=== PATIENT | male | born 1945 | race Caucasian/White ===

== ENCOUNTER → 2019-07-08 | Outpatient (CLI) | payer OTHER | LOC: SJCVC 14:55 | DX: I25.10 Atherosclerotic heart disease of native coronary artery without angina pectoris (principal); I10 Essential (primary) hypertension; E78.00 Pure hypercholesterolemia, unspecified; E11.9 Type 2 diabetes mellitus without complications; K21.9 Gastro-esophageal reflux disease without esophagitis; Z79.82 Long term (current) use of aspirin; Z79.84 Long term (current) use of oral hypoglycemic drugs; Z79.899 Other long term (current) drug therapy ==

== ENCOUNTER → 2019-07-21 | Outpatient (CLI) | payer OTHER ==
--- NOTE | 2019-07-21 10:04 | 2DMMODE ---
[facility] [place] [address] 2 D/M-MODE ECHOCARDIOGRAM Name: ZULAY JENSEN Room #: REG [facility]#: [id number] Admission: 07/21/19 Attend Phys: Kolby Bridges MD Discharge: Date of : 49 Report #: [id number] THIS REPORT FOR: //name// APPROVED REPORT Study performed: 07/21/2019 08:46:45 EXAM: Comprehensive 2D, Doppler, and color-flow Echocardiogram Patient Location: Out-Patient Room #: Echo lab 2 Status: routine BSA: 2.02 HR: 57 bpm BP: 144/80 mmHg Rhythm: Bradycardia Other Information Study Quality: Good Indications Diabetes Dyspnea Hypertension/HDD 2D Dimensions RVDd: 37.47 mm IVSd: 10.02 (7-11mm) LVOT Diam: 20.67 (18-24mm) LVDd: 49.34 mm PWd: 11.34 (7-11mm) Ascending Ao: 28.66 (22-36mm) LVDs: 31.13 (25-40mm) Aortic Root: 30.54 mm IVC: 23.00 mm Volumes Left Atrial Volume (Systole) Single Plane 4CH: 93.36 mL Single Plane 2CH: 53.46 mL LA ESV Index: 41.00 mL/m2 Aortic Valve AoV Peak Collin.: 1.57 m/s AO Peak Gr.: 9.86 mmHg LVOT Max P.99 mmHg LVOT Max V: 1.12 m/s VICKY Vmax: 2.39 cm2 Mitral Valve E/A Ratio: 1.4 [facility] [place] [address] 2 D/M-MODE ECHOCARDIOGRAM Name: ZULAY JENSEN Room #: REG [facility]#: [id number] Admission: 07/21/19 Attend Phys: Kolby Bridges MD Discharge: Date of : 49 Report #: [id number] MV Decel. Time: 137.82 ms MV E Max Collin.: 0.96 m/s MV A Collin.: 0.69 m/s MV PHT: 39.97 ms IVRT: 73.82 ms Pulmonary Valve PV Peak Collin.: 0.56 m/s PV Peak Gr.: 1.68 mmHg Pulmonary Vein P Vein S: 0.77 m/s P Vein A: 0.28 m/s P Vein D: 0.70 m/s P Vein A Dur.: 96.9 msec P Vein S/D Ratio: 1.10 Tricuspid Valve TR Peak Collin.: 2.72 m/s TR Peak Gr.: 29.67 mmHg PA Pressure: 40.00 mmHg Left Ventricle The left ventricle is normal size. There is normal LV segmental wall motion. There is normal left ventricular wall thickness. Left ventricular systolic function is normal. The left ventricular ejection fraction is within the normal range. LVEF is 55-60%. Grade II - pseudonormal filling dynamics. Right Ventricle The right ventricle is normal size. The right ventricular systolic function is normal. Atria Left atrium is dilated. Right atrium is at the upper limits of normal. Aortic Valve The aortic valve is normal in structure. No aortic regurgitation is present. There is no aortic valvular stenosis. Mitral Valve The mitral valve is normal in structure. Mild mitral regurgitation. No evidence of mitral valve stenosis. Tricuspid Valve The tricuspid valve is normal in structure. There is mild tricuspid regurgitation. Estimated PAP 35mmHg. [facility] [address] [place] [address] 2 D/M-MODE ECHOCARDIOGRAM Name: ZULAY JENSEN Room #: REG [facility]#: [id number] Admission: 07/21/19 Attend Phys: Kolby Bridges MD Discharge: Date of : 49 Report #: [id number] Pulmonic Valve The pulmonary valve is normal in structure. There is no pulmonic valvular regurgitation. Great Vessels The aortic root is normal in size. IVC is dilated and collapses >50% with inspiration. Pericardium There is no pericardial effusion. <Conclusion> The left ventricle is normal size. There is normal left ventricular wall thickness. Left ventricular systolic function is normal. The right ventricle is normal size. Left atrium is dilated. The aortic valve is normal in structure. Mild mitral regurgitation. There is mild tricuspid regurgitation. Estimated PAP 35mmHg. <ELECTRONICALLY SIGNED> By: Kolby Bridges MD 07/21/19 1003 1003 1003 Kolby Bridges MD /INF
== END ==
LOC: CV 08:15
DX: I08.1 Rheumatic disorders of both mitral and tricuspid valves (principal); I25.10 Atherosclerotic heart disease of native coronary artery without angina pectoris; E11.9 Type 2 diabetes mellitus without complications; I10 Essential (primary) hypertension; E78.5 Hyperlipidemia, unspecified; Z79.899 Other long term (current) drug therapy

== ENCOUNTER → 2019-08-25 | Outpatient (CLI) | payer OTHER | LOC: SJCVC 09:41 | DX: I25.10 Atherosclerotic heart disease of native coronary artery without angina pectoris (principal); I10 Essential (primary) hypertension; E78.00 Pure hypercholesterolemia, unspecified; K21.9 Gastro-esophageal reflux disease without esophagitis; E11.9 Type 2 diabetes mellitus without complications; E78.5 Hyperlipidemia, unspecified; Z79.84 Long term (current) use of oral hypoglycemic drugs; Z79.82 Long term (current) use of aspirin; Z79.899 Other long term (current) drug therapy ==